=== PATIENT | female | born 1980 | race American Indian/Alaskan Native ===

== ENCOUNTER 2018-04-05 12:00 | Inpatient (IN) | payer MEDICAID, OTHER ==
--- NOTE | 2018-04-05 12:57 | Anesthesia Consultation ---
Anesthesia Consult and Med Hx Date of service: 04/10/18 - Airway Anesthetic Teeth Evaluation: Good ROM Head & Neck: Adequate Mental/Hyoid Distance: Adequate Mallampati Class: Class II Intubation Access Assessment: Probably Good - Pulmonary Exam CTA: Yes - Cardiac Exam Cardiac Exam: RRR - Pre-Operative Health Status ASA Pre-Surgery Classification: ASA2 Proposed Anesthetic Plan: General Nerve Block: TAP - Pulmonary Hx Smoking: No (H/O bronchitis) - Central Nervous System Hx Psychiatric Problems: No - Endocrine Hx Non-Insulin Dependent Diabetes: No (Pre diabetes resolved, no diabetic meds) - Hematic Hx Anemia: Yes - Other Systems Hx Alcohol Use: Yes (Occas) Hx Cancer: No
[2018-04-05 13:13] LABS: Basophils # (Auto) 0.1 K/mm3 (0.0-0.1); Basophils % (Auto) 1.1 % (0.0-1.8); Eosinophils # (Auto) 0.4 K/mm3 (0.0-0.4); Eosinophils % (Auto) 7.1 % (0.0-4.3); Hematocrit 37.3 % (30.3-42.9); Hemoglobin 12.2 gm/dl (10.1-14.3); Lymphocytes # (Auto) 2.3 K/mm3 (1.2-5.4); Lymphocytes % (Auto) 46.2 % (13.4-35.0); Mean Corpuscular HGB Conc 33 % (30-34); Mean Corpuscular Hemoglobin 28 pg (28-32); Mean Corpuscular Volume 86 fl (79-97); Monocytes # (Auto) 0.3 K/mm3 (0.0-0.8); Monocytes % (Auto) 6.3 % (0.0-7.3); Platelet Count 258 K/mm3 (140-440); Red Blood Count 4.34 M/mm3 (3.65-5.03); Red Cell Distribution Width 13.3 % (13.2-15.2)
[2018-04-05 13:36] LABS: BUN/Creatinine Ratio 16; Blood Urea Nitrogen 11 mg/dL (7-17); Calcium 8.9 mg/dL (8.4-10.2); Hemolysis Index 3
[2018-04-10] MEDS ORDERED: NACL BACTERIOSTATIC INFILTRATI ONE (06:11)
[2018-04-10] MEDS ORDERED: PEPCID PO NR (07:00)
[2018-04-10] MEDS ORDERED: VERSED IV NR (07:00)
[2018-04-10] MEDS: LACTATED RINGERS 1,000 ML IV SCH ×2 (07:05→16:33)
--- NOTE | 2018-04-10 07:21 | Anesthesia Day of Surgery ---
Anesthesia Day of Surgery - Day of Surgery Patient Examined: Yes Patient H&P Reviewed: Yes Patient is NPO: Yes
[2018-04-10] MEDS ORDERED: XYLOCAINE MPF 2% ONE (07:27)
[2018-04-10] MEDS ORDERED: SUBLIMAZE ONE (07:27)
[2018-04-10] MEDS ORDERED: ZEMURON IV ONE (07:27)
[2018-04-10] MEDS ORDERED: DIPRIVAN 10 MG/ML IV ONE (07:28)
[2018-04-10] MEDS ORDERED: METHYLENE BLUE ONE (07:30)
[2018-04-10] MEDS ORDERED: SILVER NITRATE TP ONE (07:30)
[2018-04-10] MEDS ORDERED: ACD-A 500 ML IV ONE (08:42)
[2018-04-10] MEDS ORDERED: ANCEF/STERILE WATER 2 GM/20 ML IV NR (09:00)
[2018-04-10] MEDS ORDERED: NACL 0.9% IR ONE ×2 (09:07)
[2018-04-10] MEDS ORDERED: DILAUDID ONE (10:01)
[2018-04-10] MEDS ORDERED: LACTATED RINGERS 1,000 ML ONE (10:39)
[2018-04-10] MEDS ORDERED: TORADOL ONE (10:40)
[2018-04-10] MEDS ORDERED: ZOFRAN ONE (10:40)
[2018-04-10] MEDS ORDERED: BLOXIVERZ ONE (10:53)
[2018-04-10] MEDS ORDERED: ROBINUL ONE ×2 (10:53→10:57)
[2018-04-10] MEDS ORDERED: TYLENOL PO PRN (11:16)
[2018-04-10] MEDS ORDERED: REGLAN IV PRN (11:16)
[2018-04-10] MEDS ORDERED: MORPHINE IV PRN (11:16)
[2018-04-10] MEDS ORDERED: NARCAN 0.4 MG/1 ML IV PRN (11:16)
[2018-04-10] MEDS ORDERED: ZOFRAN IV PRN ×2 (11:16→11:38)
[2018-04-10] MEDS: DILAUDID IV PRN ×6 (11:35→20:53)
--- NOTE | 2018-04-10 19:19 | Operative Report ---
Operative Report Operative Report: Preoperative diagnosis: 1. Bilateral ovarian dermoid cysts. 2. Abnormal uterine bleeding. Postoperative diagnosis: Same as preoperative diagnosis. Procedure: 1. Hysteroscopy. 2. D&C. 3. Exploratory laparotomy. 4. Left oophorectomy. 5. Right ovarian cystectomy. Surgeon: Dr. Fuller Insurance Claims Assistant: none Anesthesia: General EBL: 50 cc IV fluids: RL 1 liter Urine: 200 cc clear. Intraoperative findings: 1. Bilateral large dermoid cysts. 2. Normal fallopian tubes and uterus. Procedure details Risks, benefits, and alternatives of the procedures were discussed in detail with the patient which included but not limited to the risk of infection, hemorrhage requiring blood transfusion, uterine perforation, injury to the bowel or bladder and blood vessels, the risk of having one or both ovaries removed. The patient expressed understanding, her questions were answered, and she gave informed consent. The patient was taken to the operating room with an IV fluids infusing Ringer's lactated. In the operating room, she was placed in the dorsal supine position and given general anesthesia. Armas catheter and Venodyne boots were placed. Then, she was placed on the stirrups in a dorsal lithotomy position. The perineum, vagina, cervix, and abdomen were washed and she was prepared and draped in the usual sterile fashion. Examination under anesthesia revealed normal external genitalia, vagina, and cervix. The uterus was 9 week size, anteverted, mobile. Bilateral adnexal masses palpated. A weighted speculum was placed on the posterior vaginal wall. The anterior lip of the cervix was grasped with a single-tooth tenaculum. Endocervical curettage was done. The cervical os was dilated. The hysteroscope was introduced into the uterine cavity. It revealed a mildly thickened endometrial lining. The scope was removed from the uterine cavity. A gentle curettage was performed until a gritty texture was noticed. The specimen which consisted of ECC and EMC was sent to pathology. Attention was then turned to the abdomen where a Pfannenstiel skin incision was made at about 2 cm above the pubic symphysis using the scalpel. This incision was carried down to the underlying fascia using the Bovie. The fascia was opened bilaterally in a curvilinear fashion using the Bovie. 2 straight Kocker clamps were used to grasp the upper edge of the fascia from which the underlying rectus abdominis muscle was dissected off using the Bovie. A similar procedure was done with the lower edge of the fascia to dissect the underlying rectus abdominis muscle. The muscle was bluntly from the midline by pulling. The parietal peritoneum was grasped with 2 hemostat clamps and entered sharply using Metzenbaum scissors. A quick survey of the anatomy revealed normal uterus, bilateral dermoid cysts with the left dermoid being larger measuring about 8-10 cm size. There was on no discrete ovarian tissue seen on the left side. Therefore, a left oophorectomy was performed. Attention was then turned to the right ovary where the dermoid cyst was removed intact and sent to pathology. The remaining part of the right ovary was repaired using a 4-0 Vicryl sutures with good hemostasis noted. The pelvis was irrigated with normal saline. After hemostasis was again confirmed, the instruments were removed from the abdominal cavity. The fascia was closed in a running fashion using 0 Vicryl sutures. The skin was closed with jesu. Sterile dressing was placed. The counts of laps, needles, sponges, and instruments were correct 2. The patient tolerated the procedure well. She was awaken from the anesthesia and taken to the recovery room in a stable condition.
[2018-04-11] MEDS: NORCO 5/325 PO PRN ×4 (03:08→23:05)
[2018-04-11 05:47] LABS: Basophils # (Auto) 0.1 K/mm3 (0.0-0.1); Basophils % (Auto) 0.6 % (0.0-1.8); Eosinophils # (Auto) 0.1 K/mm3 (0.0-0.4); Eosinophils % (Auto) 0.7 % (0.0-4.3); Hematocrit 36.9 % (30.3-42.9); Hemoglobin 11.9 gm/dl (10.1-14.3); Lymphocytes # (Auto) 2.5 K/mm3 (1.2-5.4); Lymphocytes % (Auto) 24.9 % (13.4-35.0); Mean Corpuscular HGB Conc 32 % (30-34); Mean Corpuscular Hemoglobin 28 pg (28-32); Mean Corpuscular Volume 87 fl (79-97); Monocytes # (Auto) 0.8 K/mm3 (0.0-0.8); Monocytes % (Auto) 7.9 % (0.0-7.3); Platelet Count 250 K/mm3 (140-440); Red Blood Count 4.25 M/mm3 (3.65-5.03); Red Cell Distribution Width 13.4 % (13.2-15.2)
--- NOTE | 2018-04-11 09:22 | Progress Note ---
Assessment and Plan - Patient Problems (1) Abnormal uterine bleeding Current Visit: Yes Status: Acute (2) Bilateral dermoid cysts of ovaries Current Visit: Yes Status: Acute (3) H/O exploratory laparotomy Current Visit: Yes Status: Acute Plan to address problem: Routine post op care. OOB to ambulate. Subjective - Subjective Date of service: 04/11/18 Principal diagnosis: S/O expl lap and cystectomy Interval history: Patient is S/P Hysterescopy, D&C, exploratory laparotomy, left oophorectomy and right ovarian cystetctomy, POD#1. She denies any complaint. She is tolerating regular diet well. She has been out of bed. Objective - Vital Signs Latest vital signs: Vital Signs Temp Pulse Pulse Resp BP BP Pulse Ox 04/11/18 04:35 98.9 F 85 20 120/63 94 04/11/18 00:55 99.0 F 70 20 118/62 98 04/10/18 20:30 98.7 F 90 20 118/63 99 04/10/18 15:19 16 04/10/18 12:45 97.8 F 59 L 16 137/93 99 04/10/18 12:40 97.8 F 51 L 50 L 137/93 100 04/10/18 12:35 17 04/10/18 12:30 65 17 123/74 100 04/10/18 12:25 16 04/10/18 12:15 65 18 120/79 100 04/10/18 12:05 16 04/10/18 12:00 97.5 F L 65 16 125/76 100 04/10/18 11:55 16 04/10/18 11:45 60 15 127/80 100 04/10/18 11:35 14 04/10/18 11:30 62 14 142/91 100 04/10/18 11:15 65 13 151/89 100 04/10/18 11:10 62 13 157/87 100 04/10/18 11:05 69 13 148/93 100 04/10/18 11:00 97.2 F L 71 16 152/94 99 Intake and Output 04/10/18 04/11/18 04/11/18 23:59 07:59 15:59 Intake Total 1066.667 480 Output Total 1700 1000 Balance -633.333 -520 Intake: IV 946.667 Lactated Ringers 1,000 ml 946.667 @ 100 mls/hr IV [facility] Rx#:[id number] Oral 120 480 Output: Urine 1700 1000 Indwelling Catheter 1200 1000 Other: Total, Intake Amount 120 240 Total, Output Amount 1200 1000 Voiding Method Indwelling Catheter - Exam Cardiovascular: Present: Normal S1, Normal S2 Lungs: Present: Clear to auscultation Deep Tendon Reflex Grade: Normal +2 - Labs Labs: Abnormal lab results 04/10/18 04/11/18 Range/Units 11:25 05:24 [place] % (Auto) 7.9 H (0.0-7.3) % POC Glucose 134 H (70-105)
[2018-04-11] MEDS: MYLICON PO PRN ×2 (17:20→23:05)
[2018-04-12] MEDS: MYLICON PO PRN (06:30)
[2018-04-12] MEDS: NORCO 5/325 PO PRN (06:30)
--- NOTE | 2018-04-12 09:02 | Progress Note ---
Assessment and Plan - Patient Problems (1) Abnormal uterine bleeding Current Visit: Yes Status: Acute (2) Bilateral dermoid cysts of ovaries Current Visit: Yes Status: Acute (3) H/O exploratory laparotomy Current Visit: Yes Status: Acute Plan to address problem: Routine post op care. OOB to ambulate. Discharge home today. Rx for percocet and motrin given. Pt to F/U in office in 5 days. Subjective - Subjective Date of service: 04/12/18 Principal diagnosis: S/O expl lap and cystectomy Interval history: Patient is S/P Hysterescopy, D&C, exploratory laparotomy, left oophorectomy and right ovarian cystetctomy, POD#2. She denies any complaint. She is tolerating regular diet well. She has been out of bed. Objective - Vital Signs Latest vital signs: Vital Signs Temp Pulse Resp BP BP Pulse Ox 04/12/18 04:00 99.7 F H 78 16 103/67 04/12/18 00:00 98.7 F 73 18 127/65 04/11/18 19:30 98.7 F 71 16 131/78 04/11/18 16:41 98.0 F 69 20 107/70 96 04/11/18 12:28 97.9 F 69 20 104/54 96 Intake and Output 04/11/18 04/12/18 04/12/18 23:59 07:59 15:59 Intake Total 300 Output Total 550 Balance -550 300 Intake: Intake, Free Water 300 Output: Urine 550 Void 550 Other: Total, Output Amount 550 - Exam Cardiovascular: Present: Normal S1, Normal S2 Lungs: Present: Clear to auscultation Vulva: both: normal Deep Tendon Reflex Grade: Normal +2
[2018-04-12 12:26] VITALS: BP 119/61
== END 2018-04-12 13:05 | disposition home or self-care (01) | DRG 743 ==
LOC: 3A 04-10 06:03 → OB 04-10 11:56
PROVIDERS: ADMIT Obstetrics & Gynecology; ATTEND Obstetrics & Gynecology
PROC: 0UDB8ZZ Extraction of Endometrium, Via Natural or Artificial Opening Endoscopic (ICD-10-PCS; principal; 2018-04-10)
PROC: 0UB00ZZ Excision of Right Ovary, Open Approach (ICD-10-PCS; 2018-04-10)
PROC: 0UT10ZZ Resection of Left Ovary, Open Approach (ICD-10-PCS; 2018-04-10)
PROC: 0UQ00ZZ Repair Right Ovary, Open Approach (ICD-10-PCS; 2018-04-10)
DX: D27.0 Benign neoplasm of right ovary (principal); D27.1 Benign neoplasm of left ovary; N92.1 Excessive and frequent menstruation with irregular cycle; Z88.8 Allergy status to other drugs, medicaments and biological substances
CPT/HCPCS: 36415; 80048; 82962; 84703; 85025; 86850; 86900; 86901; 88305; A4217; J1170; J1885; J2250; J2405; J2704; J2710; J2765; J3010; J7120; Q9968